=== PATIENT | male | born 1965 | race Caucasian/White ===

== ENCOUNTER 2020-08-21 14:45 | Observation (INO) ==
[2020-08-21] MEDS ORDERED: ASPIRIN 325 MG TABLET PO STA (15:12)
[2020-08-21] MEDS ORDERED: NITROGLYCERIN 2% OINT 1 INCH/GM PACK TOP STA (15:21)
[2020-08-21 15:35] LABS: Albumin 4.1 G/DL (3.4-5.0); Bilirubin,Total 0.6 MG/DL (0.2-1.0); Calcium 9.1 MG/DL (8.5-10.1); Potassium 4.2 MMOL/L (3.5-5.1); Total Protein 7.6 G/DL (6.4-8.2)
[2020-08-21 15:39] LABS: Basophils # 0.1 10*3/uL (0.0-0.2); Basophils % 0.7 % (0.0-0.8); Eosinophils % 0.4 % (0.00-10.9); Hematocrit 42.8 VOL% (42.0-52.0); Hemoglobin 14.7 GM/DL (14.0-18.0); Immature Granulocytes % 0.1 %; Immature Granulocytes Absolute 0.01 #; Lymphocytes % 24.8 % (21.2-54.2); Mean Corpuscular HGB Conc 34.3 GM/DL (32-36); Mean Corpuscular Volume 85.4 FL (87-102); Mean Platelet Volume 9.8 FL (9.6-12.0); Monocytes % 7.6 % (1.7-12.7); Neutrophils % 66.4 % (38.7-73.9); Platelet Count 263 T/CUMM (130-400); Red Blood Count 5.01 MC/CUMM (3.8-5.5); Red Cell Distribution Width 13.1 % (9.3-17.3)
[2020-08-21 15:49] LABS: PT Patient Result 10.7 SECS (9.8-11.9); Partial Thromboplastin Time 28.3 SECS (23.9-33.8)
[2020-08-21] MEDS ORDERED: CALCIUM CARBONATE CHEW 500 MG TABLET PO PRN (15:55)
[2020-08-21] MEDS ORDERED: ALUMINUM/MAGNES/SIMETH MAX STR 30 ML UDCUP PO PRN (15:55)
[2020-08-21] MEDS ORDERED: GLUCAGON 1 MG VIAL IM PRN (15:55)
[2020-08-21] MEDS ORDERED: ONDANSETRON 4 MG/2 ML VIAL IV PRN (15:55)
[2020-08-21] MEDS ORDERED: MORPHINE 4 MG/1 ML VIAL IV PRN (15:55)
[2020-08-21] MEDS ORDERED: ACETAMINOPHEN 325 MG TABLET PO PRN (15:55)
[2020-08-21] MEDS ORDERED: SIMETHICONE CHEW 125 MG TABLET PO PRN (15:55)
[2020-08-21] MEDS ORDERED: DEXTROSE 50% 25 GM/50 ML VIAL IV PRN (15:55)
[2020-08-21 15:59] LABS: Barbiturates Screen,Urine Negative (Negative); Benzodiazepines Screen,Urine Negative (Negative); Cannabinoid Screen,Urine Positive (Negative); Opiate Screen,Urine Negative (Negative); Phencyclidine Screen,Urine Negative (Negative)
[2020-08-21 16:22] LABS: Risk Ratio 3.75
[2020-08-21] MEDS: NITROGLYCERIN 2% OINT 1 INCH/GM PACK TOP SCH (17:33)
[2020-08-21] MEDS: ENOXAPARIN 40 MG/0.4 ML SYRINGE SUBCUT SCH (18:20)
[2020-08-22] MEDS: NITROGLYCERIN 2% OINT 1 INCH/GM PACK TOP SCH ×3 (00:23→12:42)
[2020-08-22] MEDS ORDERED: amLODIPine 10 MG TABLET PO SCH (09:00)
[2020-08-22] MEDS ORDERED: PANTOPRAZOLE 40 MG TABLET PO SCH (09:00)
[2020-08-22] MEDS ORDERED: ASPIRIN EC 325 MG TABLET PO SCH (09:00)
[2020-08-22] MEDS: ENOXAPARIN 40 MG/0.4 ML SYRINGE SUBCUT SCH (09:31)
[2020-08-22] MEDS ORDERED: GABAPENTIN 100 MG CAPSULE PO SCH (12:59)
[2020-08-22] MEDS ORDERED: ACETAMINOPHEN 325 MG TABLET PO SCH (13:00)
[2020-08-22 16:10] VITALS: BP 133/76
== END 2020-08-22 16:10 | disposition home or self-care (01) ==
LOC: N.ED 14:45 → N.EDINP 14:45 → N.5E 16:46
PROVIDERS: ADMIT Internal Medicine; ATTEND Internal Medicine